=== PATIENT | male | born 1980 | race African-American/Black ===

== ENCOUNTER 2016-12-25 09:50 | Outpatient (CLI) | payer OTHER ==
[2016-12-25] VITALS (9 sets, daily range): BP systolic 93–137; BP diastolic 52–88; PULSE 53–76
[~2016-12-25] VITALS: Ht 170.2 cm; Wt 91.9 kg
[~2016-12-25 09:50] MED LIST: KEPPRA 500MG500 MG PO; MAG-OX 400400 MG/TAB PO; TEGRETOL 2200 MG/TA1 PO; ZYRTEC 10MG10 MG PO
[2016-12-25 14:06] LABS: CEREBROSPINAL TUBE #3; CSF APPEARANCE CLEAR; CSF COLOR COLORLESS
[2016-12-28 11:02] LABS: CSF,IGG 2.3 mg/dL (<=8.1)
[2016-12-28 12:40] LABS: ALBUMIN CSF 7.7 mg/dL (<=27.0); CSF IGG/ALBUMIN 0.3 (<=0.21)
[2016-12-28 12:52] LABS: CSF SYNTHESIS RATE 5.75 mg/24 h (<=12); CSF-IGG INDEX 1.3 (<=0.85); IGG/ALBUMIN SERUM 0.23 (<=0.40)
== END 2016-12-25 13:18 | disposition home or self-care (01) ==
LOC: COL.RAD 09:50
PROVIDERS: Psychiatry & Neurology Neurology
DX: G40.89 Other seizures (principal); R93.0 Abnormal findings on diagnostic imaging of skull and head, not elsewhere classified